=== PATIENT | male | born 1950 | race African-American/Black ===

== ENCOUNTER 2019-05-16 06:14 | Emergency (ER) | payer BC ==
[2019-05-16 06:42] VITALS: BMI 25.0
--- NOTE | 2019-05-16 08:02 | PDOC ---
History of Present Illness - General Chief Complaint: Urinary Problem Stated Complaint: URINARY RETENTION Time Seen by Provider: 05/16/19 07:34 - History of Present Illness Initial Comments: Lefty Eubanks is a 68yo man with a PMH of BPH c/b urinary retention who presents with inability to urinate this morning. He was able to urinate without difficulty yesterday up until he went to bed. This morning, he felt that he needed to urinate but was unable to do so. Given his history, he came to the hospital for a catheter. He says that when he had the catheter placed several years ago, it was left for over a month and he became septic from a UTI. Due to this experience, he stopped following with urology and stopped his BPH medications. He was previously on flomax then switched to a different medication. He has not had any difficulty with urination since stopping the meds. He additionally denies any recent dysuria, frequency, urgency, or hematuria. Past History - Past Medical History Allergies/Adverse Reactions: Allergies Allergy/AdvReac Type Severity Reaction Status Date / Time No Known Allergies Allergy Verified 05/16/19 06:40 Home Medications: Ambulatory Orders Naproxen [Naprosyn -] 500 mg PO BID #14 tablet 01/23/14 Tamsulosin HCl [Flomax] 0.4 mg PO DAILY #30 cap.er.24h 05/16/19 Anemia: No Asthma: No Cancer: No Cardiac Disorders: No CVA: No COPD: No CHF: No Dementia: No Diabetes: No GI Disorders: No Disorders: Yes (enlarged prostate) HTN: No Hypercholesterolemia: No Liver Disease: No Seizures: No Thyroid Disease: No - Immunization History Td Vaccination: Yes Immunization Up to Date: Yes - Psycho Social/Smoking Cessation Hx Smoking Status: No Smoking History: Never smoked Years of Tobacco Use: 0 Have you smoked in the past 12 months: No Number of Cigarettes Smoked Daily: 0 Cigars Per Day: 0 Hx Alcohol Use: Yes Drug/Substance Use Hx: No Substance Use Type: None Hx Substance Use Treatment: No Review of Systems - Review of Systems Comments:: General: No fevers, no chills, no weight or appetite change, no malaise HEENT: No changes in vision, no changes in hearing, no congestion, no sore throat CV: No chest pain, no palpitations, no LE edema Pulm: No SOB, no cough, no wheezing GI: No nausea or vomiting, no change in bowel habits, no melena : See HPI Musc: No back pain, no joint swelling, no recent injury Skin: No rash, no lesions, no erythema Endo: No excessive thirst, no heat/cold intolerance Heme: No unusual bruising or bleeding, no swollen glands Neuro: No syncope, no numbness/tingling, no focal weakness Vasc: No claudication Psych: No recent change in mood, no SI or HI *Physical Exam - Vital Signs Last Vital Signs Temp Pulse Resp BP Pulse Ox 97.8 F 68 22 H 159/98 100 05/16/19 06:20 05/16/19 06:20 05/16/19 06:20 05/16/19 06:20 05/16/19 06:20 - Physical Exam General: Comfortable, no acute distress HEENT: Atraumatic, PERRL, EOMI, MMM, voice normal Cards: RRR, no murmur appreciated Pulm: Comfortable on room air, clear to auscultation bilaterally Abd: Soft, nontender, nondistended : No CVA tenderness. No suprapubic discomfort. Scales in place, draining freely Ext: Atraumatic. No LE edema. ROM intact. WWP Skin: Normal color, no rashes or lesions Neuro: A&Ox3, CN grossly intact, normal speech, motor/sensory grossly intact and symmetric Psych: Mood appropriate to situation Medical Decision Making - Medical Decision Making 05/16/19 08:01 Lefty Eubanks is a 68yo man with a PMH of BPH c/b urinary retention who presents with inability to urinate since this morning. He denies any other symptoms. - Scales placed prior to being seen. 750cc of urine drained immediately - UA, UCx ordered to check for underlying UTI exacerbating condition - D/w patient that he should maintain the scales until he is able to follow up with urology. Pt agrees to this plan but states that he would prefer to follow with urology at [facility], where he has his PMD. Understands that he needs an appointment within 48 hours. 05/16/19 09:03 - UA negative - Will d/c home. Again discussed importance of close follow up with urology in the next 2-3 days. Pt will return to the ED if he cannot get an appointment by Thursday. Discussed with Dr Bill Middleton PGY2 Discharge - Discharge Information Problems reviewed: Yes Clinical Impression/Diagnosis: Urinary retention Condition: Stable - Admission No - Additional Discharge Information Prescriptions: Tamsulosin HCl [Flomax] 0.4 mg PO DAILY #30 cap.er.24h - Follow up/Referral Referrals: Ross Rodriguez MD [Staff Physician] - Brian Caballero MD [Staff Physician] - - Patient Discharge Instructions Patient Printed Discharge Instructions: DI for Urinary Retention in Men Additional Instructions: Discharge Instructions: You were seen in the emergency department for urinary retention. You had a scales catheter placed with drainage of almost a liter of urine. You will need to keep the scales in place until you are seen by urology. It is important that you follow up with urology within the next 48 hours. If you are unable to get an appointment this week, return to the ED. You have been prescribed Flomax to help with your urinary retention. Check with your urologist to see if you should continue this medication. Seek immediate care for any worsening symptoms, fever/chills, back/side pain or other medical emergency. - Post Discharge Activity
[2019-05-16 08:44] LABS: EPI CELLS 0.4 /HPF (0-5/HPF); HYALINE CASTS 1 /lpf (0-8); URINE APPEARANCE CLEAR; URINE BACTERIA 0.8 /hpf (NEGATIVE); URINE BILIRUBIN NEGATIVE (NEGATIVE); URINE COLOR YELLOW; URINE GLUCOSE (UA) NEGATIVE (NEGATIVE); URINE KETONE NEGATIVE (NEGATIVE); URINE LEUK ESTERASE NEGATIVE (NEGATIVE); URINE NITRITE NEGATIVE (NEGATIVE); URINE PROTEIN 1+ (NEGATIVE); URINE RBC 6 /hpf (0-4); URINE UROBILINOGEN 0.2 mg/dL (0.2-1.0); URINE WBC 3 /hpf (0-5)
[2019-05-16 08:57] VITALS: BP 141/85; PULSE 76; TEMP 98.2
--- NOTE | 2019-05-16 09:02 | PDOC ---
Attending Attestation - Resident Resident Name: EmiEwelina - HPI HPI: 05/16/19 08:58 pt presents to the ED complaining of urinary retention that started this AM. History of one episode of urinary retention in the past. Denies fever, nausea or vomiting. Scales placed by ED nurse with 750 cc urine out. Patinet is now asymptomatic. - Physicial Exam PE: 05/16/19 08:59 Agree with resident exam. Patient is alert and oriented and in no acute distress. Abdomen is soft, non tender, non distended without guarding or rebound. - Medical Decision Making 05/16/19 09:00 Pt presents to the ED complaining of urinary retention. Resolved after placing scales in the ED. Will discharge home with leg bag and follow up.
== END 2019-05-16 09:47 | disposition home or self-care (01) ==
LOC: JER 06:14
PROC: 0T9B70Z Drainage of Bladder with Drainage Device, Via Natural or Artificial Opening (ICD-10-PCS; principal; 2019-05-16)
DX: N40.1 Benign prostatic hyperplasia with lower urinary tract symptoms (principal); R33.8 Other retention of urine
CPT/HCPCS: 81003; 87086; 99283-25

== ENCOUNTER 2019-05-24 04:01 | Emergency (ER) | payer BC ==
--- NOTE | 2019-05-24 05:03 | PDOC ---
History of Present Illness - General Stated Complaint: URINARY RETENTION Time Seen by Provider: 05/24/19 05:03 History Source: Patient Exam Limitations: No Limitations - History of Present Illness Initial Comments: 68 year old male with PMH urinary retention 2/2 enlarged prostate presented to ED for urinary retention since this morning. Pt reported he had a scales catheter placed last Thursday, it remained for 7 days, then was removed yesterday. He reported that he had no urinary retention yesterday, but this morning awoke with suprapubic pressure and was unable to urinate. Pt denied fever, chills, nausea, vomiting, back pain, flank pain, chest pain, shortness of breath, dysuria. ROS General: denied fever, chills, generalized weakness. HEENT: denied sore throat, rhinorrhea, ear pain. Cardiovascular: denied chest pain, palpitations, syncope, diaphoresis. Respiratory: denied shortness of breath, cough, sputum production, hemoptysis. Gastrointestinal: denied abdominal pain, nausea, vomiting, diarrhea, constipation, blood in stool. Genitourinary: admitted to urinary retention. denied dysuria, increased urinary frequency, hematuria, urinary incontinence, flank pain. Back: denied back pain. Musculoskeletal: denied joint pain, muscle pain, joint swelling. Neurological: denied headache, dizziness, numbness, tingling, weakness. Integumentary: denied rash, laceration, abrasion. Hematologic/Lymphatic: denied bruising or bleeding. PE Constitutional: Well-nourished, Well-developed, appearing stated age. HEENT: head is normocephalic, atraumatic. EOMI. PERRLA. Neck: supple. Full ROM. Cardiovascular: regular heart rhythm. Normal S1 and S2. no murmurs. no pericardial friction rub. Respiratory: clear to auscultation bilaterally. no crackles, rhonchi or wheezing. no stridor. Gastrointestinal: soft, flat. mild suprapubic tenderness to palpation. normal bowel sounds. no rebound, guarding, or masses. Extremities: peripheral pulses intact and equal. no lower extremity edema noted. Neurological: CN 2-12 grossly intact. moves all four extremities. Psych: awake, alert, oriented x3. follows commands. answers questions appropriately. Past History - Past Medical History Allergies/Adverse Reactions: Allergies Allergy/AdvReac Type Severity Reaction Status Date / Time No Known Allergies Allergy Verified 05/24/19 05:10 Home Medications: Ambulatory Orders Naproxen [Naprosyn -] 500 mg PO BID #14 tablet 01/23/14 Tamsulosin HCl [Flomax] 0.4 mg PO DAILY #30 cap.er.24h 05/16/19 - Immunization History Td Vaccination: Yes Immunization Up to Date: Yes - Psycho Social/Smoking Cessation Hx Smoking Status: No Smoking History: Never smoked Years of Tobacco Use: 0 Have you smoked in the past 12 months: No Number of Cigarettes Smoked Daily: 0 Cigars Per Day: 0 Hx Alcohol Use: No Drug/Substance Use Hx: No Substance Use Type: None Hx Substance Use Treatment: No Medical Decision Making - Medical Decision Making 68 year old male with above PMH presented to ED for urinary retention since this morning, recently had urinary catheter removed. Initial Vital Signs Temp Pulse Resp BP Pulse Ox 98.2 F 87 19 162/93 97 05/24/19 04:05 05/24/19 04:05 05/24/19 04:05 05/24/19 04:05 05/24/19 04:05 Labs ordered: none Imaging ordered: none Medications ordered: none Will place new scales with leg bag and DC with urology follow up. 05/24/19 05:[address] Nunez without difficulty. 05/24/19 06:34 Scales put out 900 cc of urine. Pt reported much relief of symptoms. Will discharge with leg bad. Pt advised to call urologist today and get prompt appointment. Pt given information on scales care. Pt discharged. Discharge - Discharge Information Problems reviewed: Yes Clinical Impression/Diagnosis: Urinary retention Condition: Improved - Admission No - Follow up/Referral - Patient Discharge Instructions Patient Printed Discharge Instructions: How to Care for Your Scales Catheter -- Male, DI for Urinary Retention in Men Additional Instructions: Follow up with your urologist within 3 days regarding your Emergency Department visit and Scales Catheter placement. Take Tylenol over the counter for pain. Take as advised on label. Return to the Emergency Department for fever, chills, nausea, vomiting, lightheadedness, chest pain, shortness of breath, increasing pain, flank pain, or any other new, worsening or concerning symptoms. - Post Discharge Activity Work/Back to School Note: Back to Work
[2019-05-24 05:10] VITALS: BP 162/93; PULSE 87; TEMP 98.2; BMI 26.2
--- NOTE | 2019-05-24 05:29 | PDOC ---
Attending Attestation - Resident Resident Name: Amalia Monroy - ED Attending Attestation I have performed the following: I have examined & evaluated the patient, The case was reviewed & discussed with the resident, I agree w/resident's findings & plan - HPI HPI: 05/24/19 05:40 see resident hpi - Physicial Exam PE: 05/24/19 05:40 see resident exam - Medical Decision Making 05/24/19 05:40 68-year-old male with urinary retention since yesterday status post catheter removal yesterday morning by his urologist Catheter placed without difficulty in our emergency department with immediate return of yellow urine We will transfer to leg [facility] and DC to follow-up with his urologist at [facility]
== END 2019-05-24 07:12 | disposition home or self-care (01) ==
LOC: JER 04:01
PROC: 0T9B70Z Drainage of Bladder with Drainage Device, Via Natural or Artificial Opening (ICD-10-PCS; principal; 2019-05-24)
DX: N40.1 Benign prostatic hyperplasia with lower urinary tract symptoms (principal); R33.8 Other retention of urine
CPT/HCPCS: 99283-25

== ENCOUNTER 2019-06-02 10:33 | Emergency (ER) | payer BC ==
[2019-06-02 10:47] VITALS: BP 135/90; PULSE 80; TEMP 97.5; BMI 25.7
--- NOTE | 2019-06-02 10:51 | PDOC ---
History of Present Illness - General Chief Complaint: Urinary Problem Stated Complaint: URINARY RETENTION Time Seen by Provider: 06/02/19 10:50 - History of Present Illness Initial Comments: 06/02/19 11:00 68 yo M PMH BPH w/ recurrent episodes of urinary retention, presenting with urinary retention. Last seen here 05/24/2019 for urinary retention. Notes that he had a Leonard removed 2 days ago by his urologist Dr. Kelvin Hyman at [facility] and had been urinating well yesterday, but then slowed to a trickle and has entirely stopped this AM. Complains of suprapubic abdominal pain and distension. Patient has TURP planned for June 16, 2019. Endorses chronic dysuria. Past History - Past Medical History Allergies/Adverse Reactions: Allergies Allergy/AdvReac Type Severity Reaction Status Date / Time No Known Allergies Allergy Verified 06/02/19 10:47 Home Medications: Ambulatory Orders Tamsulosin HCl [Flomax] 0.4 mg PO DAILY #30 cap.er.24h 05/16/19 Ciprofloxacin HCl [Cipro] 500 mg PO BID 7 Days #14 tablet 06/02/19 Anemia: No Asthma: No Cancer: No Cardiac Disorders: No CVA: No COPD: No CHF: No Dementia: No Diabetes: No GI Disorders: No Disorders: Yes (enlarged prostate) HTN: No Hypercholesterolemia: No Liver Disease: No Seizures: No Thyroid Disease: No - Immunization History Td Vaccination: Yes Immunization Up to Date: Yes - Psycho Social/Smoking Cessation Hx Smoking Status: No Smoking History: Never smoked Years of Tobacco Use: 0 Have you smoked in the past 12 months: No Number of Cigarettes Smoked Daily: 0 Cigars Per Day: 0 Hx Alcohol Use: No Drug/Substance Use Hx: No Substance Use Type: None Hx Substance Use Treatment: No Review of Systems - Review of Systems Comments:: 06/02/19 11:03 GENERAL/CONSTITUTIONAL: denies fever, chills, diaphoresis, generalized weakness , malaise, loss of appetite, weight change HEAD, EYES, EARS, NOSE AND THROAT: denies rhinorrhea, nasal congestion, throat pain, throat swelling, difficulty swallowing, mouth swelling, ear pain, eye pain , visual changes NEUROLOGIC: denies headache, focal weakness or paresthesias, dizziness, unsteady gait, seizure, mental status changes, bladder or bowel incontinence CARDIOVASCULAR: denies chest pain, syncope, palpitations, irregular heart rate, lightheadedness, peripheral edema RESPIRATORY: denies cough, shortness of breath, dyspnea with exertion, orthopnea , wheezing, stridor, hemoptysis GASTROINTESTINAL: denies abdominal pain, abdominal distension, nausea, vomiting , diarrhea, constipation, melena, hematochezia GENITOURINARY: endorses chronic dysuria and current retention. Denies frequency , urgency, hesitancy, hematuria, flank pain, genital pain MUSCULOSKELETAL: denies myalgia, arthralgia, joint swelling, back pain, neck pain SKIN: denies rash, itching, pallor HEMATOLOGIC/IMMUNOLOGIC: denies easy bleeding, easy bruising, lymphadenopathy, frequent infections ENDOCRINE: denies unexplained weight gain, unexplained weight loss, heat intolerance, cold intolerance PSYCHIATRIC: denies anxiety, depression, suicidal or homicidal ideation, hallucinations *Physical Exam - Vital Signs Last Vital Signs Temp Pulse Resp BP Pulse Ox 97.5 F L 80 16 135/90 100 06/02/19 10:35 06/02/19 10:35 06/02/19 10:35 06/02/19 10:35 06/02/19 10:35 - Physical Exam 06/02/19 11:02 GENERAL: Awake, alert, and fully oriented, in no acute distress. HEAD: Normal with no signs of trauma. EYES: Pupils equal, round and reactive to light, extraocular movements intact, sclera anicteric, conjunctiva clear. No lid lag. EARS, NOSE, THROAT: Ears normal, nares patent, oropharynx clear without exudates. NECK: Normal range of motion, supple without lymphadenopathy or JVD LUNGS: Breath sounds equal, clear to auscultation bilaterally. No wheezes, and no crackles. No accessory muscle use. HEART: Regular rate and rhythm, normal S1 and S2 without murmur, rub or gallop. ABDOMEN: Soft, suprapubic tenderness and distension, normoactive bowel sounds, negative guarding, negative rebound MUSCULOSKELETAL: Normal range of motion at all joints. No bony deformities or tenderness. No CVA tenderness. UPPER EXTREMITIES: 2+ pulses, warm, well-perfused. No cyanosis. No clubbing. Cap refill <2 seconds. No peripheral edema. LOWER EXTREMITIES: 2+ pulses, warm, well-perfused. No calf tenderness. No peripheral edema. NEUROLOGICAL: Cranial nerves II-XII intact. Normal speech. Normal gait. PSYCHIATRIC: Cooperative. Good eye contact. Appropriate mood and affect. SKIN: Warm, dry, normal turgor, no rashes or lesions noted. Medical Decision Making - Medical Decision Making 06/02/19 11:03 Concern for urinary retention, possible UTI. - Leonard - UA/UC - likely dc with leg bag to follow up with urologist 06/02/19 11:15 POC bedside bladder ultrasound with about 500ccs, however, also with concerning mass. Will get formal ultrasound. 06/02/19 12:12 Leonard catheter placed with 16Fr coude, mass difficult to visualize via ultrasound after bladder decompression. Will get CT abd/pelvis w/o contrast due to c/f possible bladder mass. 06/02/19 13:[address] Hyman, does not want antibiotics at this time. Agrees that patient likely needs to stay in leg bag until TURP procedure. Agrees with CT scan for r/o bladder mass. 06/02/19 13:48 CT scan with empty bladder, unable to r/o bladder neoplasm. UA with 2+ blood and 2+ leukocytes. Will give 10 days of ciprofloxacin, encourage patient to get outpatient cystoscopy. Discharge - Discharge Information Problems reviewed: Yes Clinical Impression/Diagnosis: Urinary retention, UTI (urinary tract infection) - Additional Discharge Information Prescriptions: Ciprofloxacin HCl [Cipro] 500 mg PO BID 7 Days #14 tablet - Follow up/Referral - Patient Discharge Instructions Patient Printed Discharge Instructions: How to Care for Your Leonard Catheter -- Male, DI for Urinary Tract Infection (UTI), DI for Urinary Retention in Men Additional Instructions: You were seen with urinary retention. A Leonard catheter was placed successfully. However, on bedside ultrasound there was concern for a potential bladder mass. A CT scan was performed, but could not rule out a mass as the bladder had been emptied by the Leonard catheter. Please follow up with your urologist Dr. Hyman within one week; you may need a cystoscopy. Additionally, your urine showed signs of possible infection. We have sent an antibiotic called ciprofloxacin to your pharmacy; please take it twice a day for the next 7 days. Return to the ED if you develop worsening symptoms. - Post Discharge Activity
--- NOTE | 2019-06-02 10:53 | PDOC ---
Attending Attestation - Resident Resident Name: HernandezAvery chandler - ED Attending Attestation I have performed the following: I have examined & evaluated the patient, The case was reviewed & discussed with the resident, I agree w/resident's findings & plan - HPI HPI: 06/02/19 10:52 68 year old male with PMH urinary retention 2/2 BPH presented to ED for urinary retention and suprapubic abdominal pain he has had frequent scales placements for urinary retention. last ED visit on 05/24/19, where he had scales placed, subsequently removed 2 days ago, as well as finishing a course of ciprofloxacin at that time as well. 06/02/19 12:10 - Physicial Exam PE: 06/02/19 10:52 Agree with the resident's HPI and PE as documented in the electronic medical record. NAD, well appearing, EOMI, PERRL, nl conjunctiva, anicteric; neck supple. lungs clear, RRR, abdomen soft distended, +suprapubic TTP. No rebound, no guarding. Back nontender. no CVAT> CUEVAS x4, no focal neuro deficits. No peripheral edema. normal color for ethnicity, WWP. normal external genitalia. no tenderness in scrotum or testes. 06/02/19 12:10 - Medical Decision Making 06/02/19 10:53 Vital Signs Temp Pulse Resp BP Pulse Ox 97.5 F L 80 16 135/90 100 06/02/19 10:35 06/02/19 10:35 06/02/19 10:35 06/02/19 10:35 06/02/19 10:35 pt with acute urinary retention bedside pocus renal neg for hydro. acute urinary retention of 500cc. ?isoechoic masses seen within lumen of bladder anteriorly. official CT a/p to eval for abnormalities/masses last cystoscopy was 2 years ago scales placed 16 Fr coude placed, with clear yellow urine out. UA and culture ordered. UA with UTI, WBCs 38 and symptomatic. urine culture pending will discuss with his urologist Dr Hyman, who agrees with plan, will be planned for turp as well as cystoscopy (last 2 years ago, with abnormal findings noted on our bladder sono) CT scan was unremarkable, with scales in place, bladder is underdistended after the scales placement so visualization is limited. and unable to perform studies while in pain earlier. told to maintain scales with leg bag, f/u cultures cpirofloxacin course x 7 days, as he was previously on x 3 days and may be incompletely treated UTI, so add on one week for the UTI. 06/02/19 13:55 Pt to be discharged in stable condition. Patient and family made aware of clinical impression, treatment recommendations and disposition plan, return precautions discussed (including but not limited to new or persistent/worsening symptoms, pain, fevers, or signs of infection, chest pain, respiratory distress , inability to tolerate oral intake, dehydration, syncope, or neurologic changes ). Follow up with PMD and/or urologist as recommended, follow up information provided, take medications as instructed for duration of time. continue with supportive care, avoid triggers and precipitants. All questions answered to patient's satisfaction and expressed understanding and comfort with this. At the time of discharge, the patient is alert, clinically improved, tolerating po and verbalizes understanding of instructions, satisfied with the care received and felt comfortable with the plan. Patient does not suffer from an acute life- threatening medical condition at this time and is safe for outpatient follow- up. 06/02/19 13:58
[2019-06-02] MEDS ORDERED: LIDOCAINE HCL 2% JELLY 10 ML CARTRIDGE ONE (12:02)
[2019-06-02 13:42] LABS: EPI CELLS 8.6 /HPF (0-5/HPF); HYALINE CASTS 8 /lpf (0-8); URINE APPEARANCE CLEAR; URINE BACTERIA 7.4 /hpf (NEGATIVE); URINE BILIRUBIN NEGATIVE (NEGATIVE); URINE COLOR YELLOW; URINE GLUCOSE (UA) NEGATIVE (NEGATIVE); URINE KETONE NEGATIVE (NEGATIVE); URINE LEUK ESTERASE 2+ (NEGATIVE); URINE NITRITE NEGATIVE (NEGATIVE); URINE PROTEIN TRACE (NEGATIVE); URINE RBC 11 /hpf (0-4); URINE UROBILINOGEN 0.2 mg/dL (0.2-1.0); URINE WBC 38 /hpf (0-5)
[2019-06-02 14:05] LABS: YEAST NON SEEN (NEGATIVE)
[2019-06-02] MEDS ORDERED: CIPROFLOXACIN 500 MG TABLET (RESTRICTED TO ID) PO ONE (14:07)
== END 2019-06-02 14:26 | disposition home or self-care (01) ==
LOC: JER 10:33
PROC: 0T9B70Z Drainage of Bladder with Drainage Device, Via Natural or Artificial Opening (ICD-10-PCS; principal; 2019-06-02)
PROC: BT40ZZZ Ultrasonography of Bladder (ICD-10-PCS; 2019-06-02)
DX: N39.0 Urinary tract infection, site not specified (principal); N40.1 Benign prostatic hyperplasia with lower urinary tract symptoms; R33.8 Other retention of urine
CPT/HCPCS: 74176-TC; 81003; 87086; 87186; 99284-25

== ENCOUNTER 2023-01-20 08:51 | Observation (INO) | payer BC, OTHER ==
[2023-01-20 08:59] VITALS: BMI 25.4
[2023-01-20 10:07] LABS: BASO % 0.4 % (0-2.0); EOS % 3.4 % (0-4.5); HEMATOCRIT 41.4 % (35.4-49); HEMOGLOBIN 14.3 GM/dL (11.7-16.9); LYMPH % 18.9 % (8-40); MCH 30.6 pg (25.7-33.7); MCHC 34.5 g/dl (32.0-35.9); MEAN CELL VOLUME 88.8 fl (80-96); MEAN PLT VOLUME 6.4 fl (7.5-11.1); MONO % 10.9 % (3.8-10.2); NEUT % 66.4 % (42.8-82.8); PLATELET COUNT 214 10^3/uL (134-434); RBC 4.67 M/mm3 (4.00-5.60); RDW 12.3 % (11.9-15.9); WHITE BLOOD COUNT 5.2 K/mm3 (4.0-10.0)
[2023-01-20 10:14] LABS: INR 1.08 (0.83-1.09); PROTHROMBIN TIME (PATIENT) 12.5 SEC (9.7-13.0)
[2023-01-20 10:16] LABS: ACTIVATED PTT 27.5 SECONDS (25.2-36.5)
[2023-01-20 10:34] LABS: N-TERMINAL BNP 471.3 pg/ml (5-125)
[2023-01-20 10:52] LABS: POTASSIUM 4.1 mmol/L (3.5-5.1)
[2023-01-20 10:54] LABS: ALBUMIN 3.3 g/dl (3.4-5.0); CALCIUM 8.6 mg/dL (8.5-10.1); MAGNESIUM 1.8 mg/dL (1.8-2.4)
[2023-01-20 10:55] LABS: BLOOD UREA NITROGEN 14.5 mg/dL (7-18)
[2023-01-20 10:57] LABS: CREATININE 0.9 mg/dL (0.55-1.3)
[2023-01-20 10:59] LABS: BILIRUBIN,TOTAL 0.5 mg/dL (0.2-1); TOT PROT 7.3 g/dl (6.4-8.2)
[2023-01-20] MEDS ORDERED: dilTIAZem HCL 50 MG/10 ML - 10 ML VIAL IVPUSH ONE (11:04)
[2023-01-20] MEDS ORDERED: ENOXAPARIN NA (PORCINE) 80 MG/0.8 ML DISP.SYRIN SQ ONE ×2 (11:17→11:24)
[2023-01-20] MEDS ORDERED: dilTIAZem HCL 125 MG/25 ML - 25 ML VIAL ONE (11:18)
[2023-01-20] MEDS ORDERED: dilTIAZem HCL 60 MG TABLET PO ONE (12:17)
[2023-01-20] MEDS ORDERED: dilTIAZem HCL 60 MG TABLET ONE (12:31)
[2023-01-20 20:29] LABS: PH,URINE 6.5 (5.0-8.0); URINE APPEARANCE CLEAR; URINE BILIRUBIN NEGATIVE (NEGATIVE); URINE COLOR YELLOW; URINE GLUCOSE (UA) NEGATIVE (NEGATIVE); URINE KETONE NEGATIVE (NEGATIVE); URINE LEUK ESTERASE NEGATIVE (NEGATIVE); URINE NITRITE NEGATIVE (NEGATIVE); URINE PROTEIN NEGATIVE (NEGATIVE); URINE UROBILINOGEN 0.2 mg/dL (0.2-1.0)
[2023-01-20] MEDS ORDERED: HEPARIN NA (PORCINE) 5,000 UNITS/ML 1ML VIAL ONE (22:47)
[2023-01-20] MEDS: HEPARIN NA (PORCINE) 5,000 UNITS/ML 1ML VIAL SQ SCH (22:50)
[2023-01-21 06:52] LABS: BASO % 0.6 % (0-2.0); EOS % 5.2 % (0-4.5); HEMATOCRIT 41.2 % (35.4-49); HEMOGLOBIN 14.4 GM/dL (11.7-16.9); LYMPH % 21.9 % (8-40); MCH 31.2 pg (25.7-33.7); MEAN CELL VOLUME 89.1 fl (80-96); MEAN PLT VOLUME 6.4 fl (7.5-11.1); MONO % 10.6 % (3.8-10.2); NEUT % 61.7 % (42.8-82.8); PLATELET COUNT 199 10^3/uL (134-434); RBC 4.63 M/mm3 (4.00-5.60); RDW 12.4 % (11.9-15.9); WHITE BLOOD COUNT 4.7 K/mm3 (4.0-10.0)
[2023-01-21 07:17] LABS: POTASSIUM 3.7 mmol/L (3.5-5.1)
[2023-01-21 07:18] LABS: CALCIUM 8.7 mg/dL (8.5-10.1)
[2023-01-21 07:19] LABS: BLOOD UREA NITROGEN 13.9 mg/dL (7-18)
[2023-01-21 07:22] LABS: CREATININE 0.9 mg/dL (0.55-1.3)
[2023-01-21] MEDS ORDERED: metoPROLOL SUCCINATE 25 MG TAB.SR.24H (FP) PO SCH (10:00)
[2023-01-21] MEDS: HEPARIN NA (PORCINE) 5,000 UNITS/ML 1ML VIAL SQ SCH (10:52)
[2023-01-21] MEDS ORDERED: NYSTATIN 100,000 UNIT/GM TOPICAL CREAM 15 GM TUBE TP SCH (11:00)
[2023-01-21] MEDS ORDERED: ASPIRIN COATED 81 MG TABLET.EC PO SCH (11:00)
[2023-01-21 15:02] VITALS: BP 127/79; PULSE 69; RESP 18; TEMP 98.4
== END 2023-01-21 16:32 | disposition home or self-care (01) ==
LOC: JER 08:51 → JERBED 13:59 → J4W 01-21 06:57
PROVIDERS: ADMIT Internal Medicine; ATTEND Internal Medicine
PROC: 3E033GC Introduction of Other Therapeutic Substance into Peripheral Vein, Percutaneous Approach (ICD-10-PCS; principal; 2023-01-20)
PROC: 3E023GC Introduction of Other Therapeutic Substance into Muscle, Percutaneous Approach (ICD-10-PCS; 2023-01-20)
DX: I48.91 Unspecified atrial fibrillation (principal); R55 Syncope and collapse; R07.89 Other chest pain; R00.2 Palpitations; R61 Generalized hyperhidrosis; Z86.718 Personal history of other venous thrombosis and embolism; R00.0 Tachycardia, unspecified; B35.3 Tinea pedis
CPT/HCPCS: 36415; 70450-TC; 71045-TC-FY; 71275-TC; 80048; 80053; 81003; 82962; 83735; 83880; 84439; 84443; 84484; 85025; 85610; 85730; 87086; 93005; 93010; 93306-TC; 96372; 96374; 99291; G0378; J1644; Q9967